=== PATIENT | female | born 1995 | race African-American/Black ===

== ENCOUNTER 2017-02-23 12:52 | Emergency (ER) | payer MEDICAID ==
[~2017-02-23] VITALS: Ht 154.9 cm; Wt 64.9 kg
[2017-02-23 13:10] VITALS: BP 143/79
[2017-02-23 13:59] LABS: APPEARANCE,URINE CLEAR; KETONES,URINE 2+ (NEGATIVE); LEUKOCYTE ESTERASE ,URINE NEGATIVE (NEGATIVE); NITRITE,URINE NEGATIVE (NEGATIVE); PH,URINE 5 (4.5-8.0); PROTEIN,URINE NEGATIVE (NEGATIVE); UROBILINOGEN,URINE NORMAL MG/DL (0.0-1.0)
[2017-02-23] MEDS ORDERED: ACYCLOVIR200 MG ORAL (14:50)
[2017-02-23 14:57] VITALS: BP 143/79
--- NOTE | 2017-02-23 21:26 | Emergency Room Report ---
History of Present Illness General Chief Complaint: Skin Rash/Abscess Source: Patient Present Illness HPI The patient is a 21-year-old female presenting for possible herpes of the upper lip. The patient states that she was sexually active with her boyfriend one week prior and then developed a tingling sensation of the mid upper lip the following day. The patient then noticed an outbreak of this area. Pain is described as a 6/10 dull ache and does not radiate. Pain worse with touch. She has been using Abreva which does seem to help. The patient states that she pulls off the scab at the time it forms. She denies ever having this lesion in the past. The patient states that she is currently being treated for bacterial vaginosis. She denies any other symptoms including cough, fever, chills, headache, dizziness, dysuria, hematuria, abdominal pain, vaginal discharge or bleeding Allergies: Coded Allergies: CODEINE (Unverified Allergy, Unknown, 02/23/17) Uncoded Allergies: PROMETHAZINE WITH CODEINE (Allergy, Severe, 02/23/17) dizzy Patient History Past Medical History: see triage record Pertinent Family History: none Last Menstrual Period: thursday Now: No Reviewed Nursing Documentation: PMH: Agreed, PSxH: Agreed Nursing Documentation-PMH Past Medical History: No Stated History Review of Systems All Other Systems: negative except mentioned in HPI Physical Exam Vital Signs Date Time Temp Pulse Resp B/P Pulse Ox O2 Delivery O2 Flow Rate FiO2 02/23/17 13:10 98.1 119 18 143/79 99 Room Air Sp02 EP Interpretation: reviewed, normal General Appearance: no apparent distress, alert, GCS 15, non-toxic Head: normocephalic, atraumatic Eyes: bilateral eye PERRL, bilateral eye normal inspection ENT: hearing grossly normal, normal pharynx, no angioedema, normal voice, other - Multiple herpetic lesions of the mid upper lip Neck: full range of motion, supple/symm/no masses Respiratory: chest non-tender, lungs clear, normal breath sounds, speaking full sentences Musculoskeletal: back normal, gait/station normal, normal range of motion, non- tender Neurologic: alert, oriented x3, responsive, motor strength/tone normal, sensory intact, normal gait, speech normal Psychiatric: judgement/insight normal, memory normal, mood/affect normal, no suicidal/homicidal ideation Lymphatic: no adenopathy Medical Decision Making PA Attestation Dr. Rojas is my supervising physician. Patient management was discussed with my supervising physician Diagnostic Impression: Primary Impression: Herpes simplex labialis ER Course The patient is a 21-year-old female presenting for possible herpes of the upper lip. Ddx considered include but not limited to insect bite, contact dermatitis, eczema, cellulitis, STD, HSV Physical exam: Afebrile. No apparent distress. HEENT: There are multiple herpetic lesions of the mid upper lip. Tender to palpation. No lesions inside the mouth. No tonsillar edema. No lymphadenopathy. Otherwise skin is unremarkable. Abdomen is soft and nontender. Urinalysis shows no signs of infection The patient to be discharged home with antiviral medication and is given ER precautions. Laboratory Tests Test 02/23/17 13:45 Urine Color Pale yellow Urine Appearance Clear Urine pH 5 (4.5-8.0) Urine Specific [place] 1.010 (1.005-1.035) Urine Protein Negative (NEGATIVE) Urine Glucose (UA) Negative (NEGATIVE) Urine Ketones 2+ (NEGATIVE) H Urine Occult Blood Negative (NEGATIVE) Urine Nitrite Negative (NEGATIVE) Urine Bilirubin Negative (NEGATIVE) Urine Urobilinogen Normal MG/DL (0.0-1.0) Urine Leukocyte Esterase Negative (NEGATIVE) Urine HCG, Qualitative Negative Lab Results Impression No signs of infection EKG Diagnostic Results PA Scribe Text Dr. Rojas is my supervising physician. Patient management was discussed with my supervising physician Last Vital Signs Date Time Temp Pulse Resp B/P Pulse Ox O2 Delivery O2 Flow Rate FiO2 02/23/17 14:57 98.1 119 18 143/79 99 Room Air Status: improved Disposition: HOME, SELF-CARE Condition: Improved Scripts Acyclovir* (ACYCLOVIR*) 200 Mg Capsule 200 MG ORAL Q4HR, #30 CAP Prov: RADHA UGALDE 02/23/17 Patient Instructions: Cold Sore Additional Instructions: I discussed my findings with the patient. All questions and concerns have been answered. Treatment and medication compliance have been addressed. I advised the patient that they need to follow up with PMD in 3-5 days. Return to ED if symptoms worsen, new symptoms arise, or if needed for any reason. Patient verbalized understanding of discharge instructions. RADHA UGALDE February 23, 2017 21:26
== END 2017-02-23 14:57 | disposition home or self-care (01) ==
LOC: EMR 13:30
DX: B00.1 Herpesviral vesicular dermatitis (principal); Z88.6 Allergy status to analgesic agent
CPT/HCPCS: 81003; 81025; 99283